=== PATIENT | female | born 1975 | race Two or more races ===

== ENCOUNTER 2024-05-02 07:23 | Outpatient (CLI) | payer OTHER | END 2024-05-02 07:30 | disposition home or self-care (01) | LOC: RAD 07:23 | PROVIDERS: ATTEND Orthopaedic Surgery | DX: M25.561 Pain in right knee (principal) ==

== ENCOUNTER 2024-06-27 07:29 | Outpatient (CLI) | payer OTHER | END 2024-06-27 07:37 | disposition home or self-care (01) | LOC: MAMO-SONO 07:29 | PROVIDERS: ATTEND Surgery | DX: N60.11 Diffuse cystic mastopathy of right breast (principal); N60.12 Diffuse cystic mastopathy of left breast ==